=== PATIENT | female | born 1945 | race Two or more races ===

== ENCOUNTER 2022-05-09 05:40 | Day surgery (SDC) | payer OTHER ==
[~2022-05-09] VITALS: Ht 160 cm; Wt 72.6 kg
[~2022-05-09 05:40] MED LIST: GABAPEN PO; OMEPRAZOLE20 MG PO; ULTRACE PO; VOLTA PO; ZANTAC-360 (FAM20 MG PO
[2022-05-09] MEDS ORDERED: RECTICARE30 GM TOP (08:43)
[2022-05-09] MEDS ORDERED: PERCOCET 5-3251 EACH PO (08:43)
== END 2022-05-09 13:30 | disposition home or self-care (01) ==
LOC: CIR.AMB 05:40
PROVIDERS: ATTEND Surgery
DX: K64.1 Second degree hemorrhoids (principal); K64.8 Other hemorrhoids; Z20.822 Contact with and (suspected) exposure to COVID-19; Z88.6 Allergy status to analgesic agent; K59.04 Chronic idiopathic constipation